=== PATIENT | male | born 1940 | race Caucasian/White ===

== ENCOUNTER 2016-10-31 17:53 | Emergency (ER) | payer BC ==
[~2016-10-31] VITALS: Ht 170.2 cm; Wt 75.0 kg
[2016-10-31 17:56] VITALS: BP 164/79; PULSE 69; RESP 18; TEMP 98.4; O2SAT 99
[2016-10-31] MEDS ORDERED: TAMS5CAP PO (18:41)
--- NOTE | 2016-10-31 18:44 | PD ---
HPI Chief Complaint: Complaint Time Seen by Provider: 18:44 Travel History International Travel<30 days: No Contact w/Intl Traveler<30days: No History of Present Illness HPI 75-year-old male with PMH of BPH presents to the ED for evaluation of approximately 12 hours history of anuria. Patient reports similar episodes in the past. He takes generic tamsulosin. That he recently used a generic male enhancement product which he thinks may have contributed to his urinary retention today. Patient is visiting from [place] and follows with a urologist there. He denies fever, chills, nausea, vomiting, hematuria. PFSH Past Medical History Diminished Hearing: No Genitourinary: Yes (BPH) Past Surgical History Tonsillectomy: Yes Social History Alcohol Use: No Tobacco Use: No Substance Use: No Allergies-Medications (Allergen,Severity, Reaction): Coded Allergies: No Known Allergies (Unverified , 10/31/16) Reported Meds & Prescriptions Reported Meds & Active Scripts Active Reported Finasteride 5 Mg Tab 5 Mg PO DAILY Do not crush. Alfuzosin ER 24 HR 10 Mg Tab 10 Mg PO DAILY Flomax (Tamsulosin HCl) 0.4 Mg Cap 0.4 Mg PO HS Review of Systems Except as stated in HPI: all other systems reviewed are Neg Physical Exam Narrative GENERAL: Well-nourished, well-developed nontoxic appearing white male in no acute distress. SKIN: Focused skin assessment warm/dry. HEAD: Normocephalic. EYES: No scleral icterus. No injection or drainage. NECK: Supple, trachea midline. No JVD or lymphadenopathy. CARDIOVASCULAR: Regular rate and rhythm without murmurs, gallops, or rubs. RESPIRATORY: Breath sounds equal bilaterally. No accessory muscle use. GASTROINTESTINAL: Abdomen soft, non-tender, nondistended. Active bowel sounds. MUSCULOSKELETAL: No cyanosis, or edema. BACK: Nontender without obvious deformity. No CVA tenderness. Data Data Last Documented VS Vital Signs Date Time Temp Pulse Resp B/P (MAP) Pulse Ox O2 Delivery O2 Flow Rate FiO2 10/31/16 20:48 10/31/16 19:39 69 16 100 Room Air 10/31/16 17:56 98.4 Orders Orders Urinalysis - C+S If Indicated (10/31/16 18:19) Urinary Catheter Insert/Apply (10/31/16 18:44) Comprehensive Metabolic Panel (10/31/16 19:09) Labs Laboratory Tests Test 10/31/16 19:09 10/31/16 19:35 Urine Color YELLOW Urine Turbidity CLEAR Urine pH 5.5 Urine Specific [place] 1.017 Urine Protein NEG mg/dL Urine Glucose (UA) NEG mg/dL Urine Ketones NEG mg/dL Urine Occult Blood NEG Urine Nitrite NEG Urine Bilirubin NEG Urine Urobilinogen LESS THAN 2.0 MG/DL Urine Leukocyte Esterase NEG Urine RBC LESS THAN 1 /hpf Urine WBC 1 /hpf Urine Mucus FEW /lpf Microscopic Urinalysis Comment CULT NOT INDICATED Blood Urea Nitrogen 15 MG/DL Creatinine 1.43 MG/DL Random Glucose 99 MG/DL Total Protein 6.7 GM/DL Albumin 3.8 GM/DL Calcium Level 8.7 MG/DL Alkaline Phosphatase 68 U/L Aspartate Amino Transf (AST/SGOT) 13 U/L Alanine Aminotransferase (ALT/SGPT) 22 U/L Total Bilirubin 0.7 MG/DL Sodium Level 137 MEQ/L Potassium Level 4.1 MEQ/L Chloride Level 105 MEQ/L Carbon Dioxide Level 25.4 MEQ/L Anion Gap 7 MEQ/L Estimat Glomerular Filtration Rate 48 ML/MIN [facility] Medical Decision Making Medical Screen Exam Complete: Yes Emergency Medical Condition: Yes Differential Diagnosis BPH versus urinary retention versus LOREN versus other Narrative Course 75-year-old male with history of BPH and urinary retention presents to the ED for evaluation approximately 12 hours history of an area. Patient denies preceding fevers, chills, nausea, vomiting, flank pain. States that he used a male enhancement drug prior to onset of symptoms. Patient is visiting from [place], follows with the urologist there. Vitals reviewed. Patient is hypertensive but this is resolved after [place] catheter was placed. Abdomen soft and nontender. Urine output approximately 1 L and initiation of catheter. Patient's abdominal pain was completely resolved. Creatinine is 1.43. BUN 15. No evidence of UTI. [place] was left indwelling, patient was provided with a leg bag. He is instructed to continue with tamsulosin, follow-up with his urologist on return to [place], return to the ED should symptoms worsen. He was given strict instructions not to remove the catheter until seen by his urologist. He indicated understanding of instructions and is agreeable care plan. He is stable and discharged home. Diagnosis Primary Impression: Urinary retention due to benign prostatic hyperplasia Referrals: Urologist Patient Instructions: General Instructions, Urinary Leg Bag (GEN), Urinary Retention in Men (ED) Additional Instructions: Rest, hydrate. Do not remove the [place] catheter until you are evaluated by a urologist. Continue with your generic Flomax as previously prescribed. Follow-up with the urologist upon return home. Return to the ED for worsening symptoms or any urgent or emergent medical condition. Disposition: 01 DISCHARGE HOME Condition: Stable Fernanda Hauser Oct 31, 2016 18:44
[2016-10-31] MEDS ORDERED: FINA5TAB2 PO (19:08)
[2016-10-31] MEDS ORDERED: ALFU10TA2 PO (19:08)
[2016-10-31 19:39] VITALS: BP 157/69; PULSE 69; RESP 16; O2SAT 100
[2016-10-31 19:39] LABS: BLOOD, URINE NEG (NEG); COMMENT (UR) CULT NOT INDICATED; CULTURE IF INDICATED CULT NOT INDICATED; GLUCOSE,URINE NEG (NEG); KETONE, URINE NEG (NEG); MUCUS URINE FEW /lpf (OCC); NITRITE,URINE NEG (NEG); PH, URINE 5.5 (5.0-8.5); URINE COLOR YELLOW (YELLW/STRAW)
[2016-10-31 20:43] LABS: ANION GAP 7 MEQ/L (5-15); AST (GOT) 13 U/L (15-37); BICARBONATE 25.4 MEQ/L (21.0-32.0); BLOOD UREA NITROGEN 15 MG/DL (7-18); CHLORIDE 105 MEQ/L (98-107); GLOMERULAR FILTRATION RATE 48 ML/MIN (>89); POTASSIUM 4.1 MEQ/L (3.5-5.1); SODIUM (NA) 137 MEQ/L (136-145)
[2016-10-31 20:44] LABS: ALT (GPT) 22 U/L (12-78)
[2016-10-31 20:46] LABS: ALKALINE PHOSPHATASE 68 U/L (45-117); TOTAL BILIRUBIN ADULT 0.7 MG/DL (0.2-1.0)
== END 2016-10-31 21:02 | disposition home or self-care (01) ==
LOC: NEPC 17:53
DX: N40.1 Benign prostatic hyperplasia with lower urinary tract symptoms (principal); R33.8 Other retention of urine
CPT/HCPCS: 80053; 81001; 99283